=== PATIENT | female | born 1935 | race African-American/Black ===

== ENCOUNTER 2016-04-08 08:52 | Observation (INO) | payer MEDICARE, OTHER ==
[~2016-04-08] VITALS: Ht 175.3 cm; Wt 82.4 kg
[2016-04-08] MEDS ORDERED: METHYLPRED SOD SUCC 125 MG/2 ML VIAL ONE (09:38)
[2016-04-08] MEDS ORDERED: DUONEB INH ONE ×2 (09:51)
[2016-04-08] MEDS ORDERED: AZITHROMYCIN 500 MG VIAL IV ONE (12:20)
[2016-04-08] MEDS ORDERED: SODIUM CHLORIDE 0.9% 200 ML IV ONE (12:20)
[2016-04-08] MEDS ORDERED: CEFTRIAXONE 1 GM VIAL ONE (12:20)
[2016-04-08 13:16] VITALS: BP_SYST 148; BP_SYST 152; RESP 16; TEMP 98.3; Ht 175.3 cm; Wt 82.4 kg
[2016-04-08 16:01] VITALS: BP_SYST 159; TEMP 98.4
[2016-04-08 16:02] VITALS: RESP 16
[2016-04-08 19:31] VITALS: BP_SYST 163; RESP 18; TEMP 97.8
[2016-04-08] MEDS ORDERED: Furosemide 20 MG/2 ML VIAL IV ONE (20:25)
[2016-04-08] MEDS: DUONEB INH SCH ×2 (20:25→22:39)
[2016-04-08] MEDS ORDERED: PANTOPRAZOLE 20 MG TAB PO SCH (21:00)
[2016-04-08] MEDS ORDERED: Atorvastatin 10 MG TAB PO SCH (21:00)
[2016-04-08] MEDS: METHYLPRED SOD SUCC 40 MG VIAL IV SCH (22:44)
[2016-04-08] MEDS: OXYCODONE/APAP 7.5/325 TAB PO SCH (22:45)
[2016-04-08] MEDS: Carvedilol 6.25 MG TAB PO SCH (22:46)
[2016-04-08] MEDS: MONTELUKAST 10 MG TAB PO SCH (22:46)
[2016-04-08] MEDS: PAROXETINE HCL 20 MG TAB PO SCH (22:46)
[2016-04-08] MEDS: LISINOPRIL 20 MG TAB PO SCH (22:53)
[2016-04-09 00:04] VITALS: BP_SYST 157; RESP 20; TEMP 98.5
[2016-04-09] MEDS: MORPHINE ER 15 MG TAB PO SCH ×2 (00:30→09:19)
[2016-04-09 03:04] VITALS: BP_SYST 144; RESP 20; TEMP 98.3
[2016-04-09] MEDS: METHYLPRED SOD SUCC 40 MG VIAL IV SCH ×3 (06:44→12:00)
[2016-04-09 07:27] VITALS: BP_SYST 157; RESP 20; TEMP 98.5
[2016-04-09] MEDS: DUONEB INH SCH ×3 (07:32→14:01)
[2016-04-09] MEDS ORDERED: CEFTRIAXONE 1 GM in SODIUM CHLORIDE 0.9% 50 ML IV SCH (09:00)
[2016-04-09] MEDS ORDERED: Furosemide 40 MG TAB PO SCH (09:00)
[2016-04-09] MEDS ORDERED: GLUCAGON 1 MG VIAL IM PRN (09:15)
[2016-04-09] MEDS ORDERED: DEXTROSE 50% SYRINGE 50 ML IV PRN (09:15)
[2016-04-09] MEDS: MONTELUKAST 10 MG TAB PO SCH (09:19)
[2016-04-09] MEDS: Carvedilol 6.25 MG TAB PO SCH (09:19)
[2016-04-09] MEDS: PAROXETINE HCL 20 MG TAB PO SCH (09:19)
[2016-04-09] MEDS: LISINOPRIL 20 MG TAB PO SCH (09:19)
[2016-04-09] MEDS: OXYCODONE/APAP 7.5/325 TAB PO SCH (09:20)
[2016-04-09 11:19] VITALS: BP_SYST 161; RESP 20; TEMP 97.6
[2016-04-09 14:08] VITALS: BP_SYST 161; RESP 20; TEMP 97.6
[2016-04-09 15:05] VITALS: BP_SYST 156; RESP 20; TEMP 98.3
== END 2016-04-09 11:37 | disposition home or self-care (01) ==
LOC: ENRESERVDT → ENRESERVTM → ER 08:52 → EMR 12:05 → ENPENDDIS 12:05 → 3NT 13:14
PROVIDERS: ADMIT Internal Medicine; ATTEND Internal Medicine
DX: J44.1 Chronic obstructive pulmonary disease with (acute) exacerbation (principal); J18.9 Pneumonia, unspecified organism; R09.02 Hypoxemia; F17.200 Nicotine dependence, unspecified, uncomplicated; I48.91 Unspecified atrial fibrillation; E11.9 Type 2 diabetes mellitus without complications; I10 Essential (primary) hypertension; I11.0 Hypertensive heart disease with heart failure; I50.9 Heart failure, unspecified; G89.4 Chronic pain syndrome; M13.0 Polyarthritis, unspecified; Z79.899 Other long term (current) drug therapy; Z86.73 Personal history of transient ischemic attack (TIA), and cerebral infarction without residual deficits; E78.00 Pure hypercholesterolemia, unspecified
CPT/HCPCS: 36415; 71010; 80053; 81001; 82553; 82803; 82947; 83605; 83880; 84484; 85025; 85610; 85730; 87040; 87088; 87804; 93005; 94640; 96374; 96375; 99285; G0378; J0696; J2930